=== PATIENT | male | born 1980 | race Two or more races ===

== ENCOUNTER 2020-11-01 06:00 | Day surgery (SDC) | payer OTHER | END 2020-11-01 10:12 | disposition home or self-care (01) | LOC: CIR.AMB 06:00 | PROVIDERS: ATTEND Orthopaedic Surgery | DX: M75.122 Complete rotator cuff tear or rupture of left shoulder, not specified as traumatic (principal); M75.22 Bicipital tendinitis, left shoulder; Z20.822 Contact with and (suspected) exposure to COVID-19; M75.02 Adhesive capsulitis of left shoulder ==